=== PATIENT | female | born 1985 | race African-American/Black ===

== ENCOUNTER 2024-01-18 04:03 | Day surgery (SDC) | payer OTHER ==
[2024-01-14 11:44] VITALS: BMI 32.1
[~2024-01-18 04:03] MED LIST: LACTATED RINGERS SOLUTION 1,000 ML IV SCH; ONDANSETRON 4 MG/2 ML VIAL IVPUSH PRN; oxyCODONE HCL 5 MG TABLET PO PRN
[2024-01-18] MEDS ORDERED: SEVOFLURANE 250 ML BTL ONE (07:17)
[2024-01-18] MEDS ORDERED: LIDOCAINE HCL/PF 2% SDV 5ML VIAL ONE (07:17)
[2024-01-18] MEDS ORDERED: PROPOFOL 40 ML ONE (07:17)
[2024-01-18] MEDS ORDERED: ONDANSETRON 4 MG/2 ML VIAL ONE (07:18)
[2024-01-18] MEDS ORDERED: KETOROLAC TROMETHAMINE 30 MG/1 ML VIAL ONE (07:18)
[2024-01-18] MEDS ORDERED: DEXAMETHASONE SOD PHOSPHATE 4 MG/1 ML VIAL ONE (07:18)
[2024-01-18] MEDS ORDERED: MIDAZOLAM HCL 2 MG/2 ML SINGLE DOSE VIAL ONE (07:24)
[2024-01-18] MEDS ORDERED: IBUPROFEN 800 MG/8 ML IJ IVPB PRN (07:44)
[2024-01-18] MEDS ORDERED: IBUPROFEN 600 MG TABLET (FP) PO PRN (07:44)
[2024-01-18] MEDS ORDERED: oxyCODONE HCL 5 MG TABLET PO PRN ×2 (07:44→07:50)
[2024-01-18] MEDS ORDERED: ONDANSETRON 4 MG/2 ML VIAL IVPUSH PRN ×2 (07:44→07:45)
[2024-01-18] MEDS ORDERED: ELECTROLYTE-148 SOLN 1,000 ML IV SCH (07:45)
[2024-01-18] MEDS ORDERED: ACETAMINOPHEN INJECTION 100 ML ONE (07:46)
[2024-01-18] MEDS: LACTATED RINGERS SOLUTION 1,000 ML IV SCH (09:57)
[2024-01-18 11:53] VITALS: BP 132/81; PULSE 61; RESP 18; TEMP 98
== END 2024-01-18 11:40 | disposition home or self-care (01) ==
LOC: JASU-SURG 04:03
PROVIDERS: ATTEND Obstetrics & Gynecology
PROC: 0UB98ZZ Excision of Uterus, Via Natural or Artificial Opening Endoscopic (ICD-10-PCS; principal; 2024-01-18 07:30)
DX: N84.0 Polyp of corpus uteri (principal); N85.00 Endometrial hyperplasia, unspecified
CPT/HCPCS: 81025; 88305-TC; 94760; J0131